=== PATIENT | female | born 1945 | race Two or more races ===

== ENCOUNTER 2022-01-12 22:44 | Emergency (ER) | payer MEDICARE, OTHER ==
[~2022-01-12] VITALS: Ht 152.4 cm; Wt 90.6 kg
[~2022-01-12 22:44] MED LIST: ATOR20TA58 PO; DEXT15DR17 OU; DIVA-51 PO; DOCU-148 PO; DONE5TAB56 PO; DORZ10DR6 OU; HYDR-2765 PO; INSU100V8 SQ; LATA2.5D2 OU; LEVO150T5 PO; POLY17PO52 PO; QUET25TA3 PO; SERT-267 PO
[2022-01-13] MEDS ORDERED: IV NORMAL SALINE 1000ML BAG 1,000 ML IV ONE
[2022-01-13 00:08] LABS: BASO % 1 % (0-3); EOS # 0.2 x10^3/uL (0.0-0.7); EOS % 2 % (0-3); HEMATOCRIT 40.3 % (36.0-47.0); LYMPH # 1.5 x10^3/uL (1.0-4.8); LYMPH % 17 % (24-48); MEAN CORPUSCULAR HEMOGLOBIN 28 pg (25-35); MEAN CORPUSCULAR HGB CONC 32 g/dL (31-37); MEAN CORPUSCULAR VOLUME 86 fL (79-100); MONO # 0.6 x10^3/uL (0.0-1.1); MONO % 7 % (0-9); NEUT # 6.5 x10^3/uL (1.8-7.7); NEUT % 74 % (31-73); PLATELET COUNT 168 x10^3/uL (140-400); RED BLOOD COUNT 4.69 x10^6/uL (3.50-5.40); RED CELL DISTRIBUTION WIDTH 15.3 % (11.5-14.5); WHITE BLOOD COUNT 8.8 x10^3/uL (4.0-11.0)
[2022-01-13 00:28] LABS: ANION GAP 6 (6-14); BLOOD UREA NITROGEN 27 mg/dL (7-20); BUN/CREATININE RATIO 19 (6-20); CALCIUM 11.3 mg/dL (8.5-10.1); CARBON DIOXIDE 26 mmol/L (21-32); CHLORIDE 104 mmol/L (98-107); CREATININE 1.4 mg/dL (0.6-1.0); GFR 36.6; GLUCOSE 245 mg/dL (70-99); POTASSIUM 5.5 mmol/L (3.5-5.1); SODIUM 136 mmol/L (136-145)
[2022-01-13 00:34] LABS: ALBUMIN 2.4 g/dL (3.4-5.0); ALBUMIN/GLOBULIN RATIO 0.6 (1.0-1.7); ALK PHOS 95 U/L (46-116); ALT (SGPT) 20 U/L (14-59); AST (SGOT) 14 U/L (15-37); TOTAL BILIRUBIN 0.2 mg/dL (0.2-1.0); TOTAL PROTEIN 6.6 g/dL (6.4-8.2)
[2022-01-13 00:36] LABS: VAL ACID 51 mcg/mL (50-100)
[2022-01-13 01:09] VITALS: BP 147/69
--- NOTE | 2022-01-13 10:33 | EKG ---
[facility] [address] [place] [address] Test Date: 2022-01-12 Test Time: 22:58:29 Pat Name: SADA RALPH Department: Room: Gender: [employer] Dis[employer]: [id number] : 1945 Requested By: JAE LE Order Number: [id number] Reading MD: Andrea Colunga Measurements Intervals [place] Rate: 90 P: 41 [place]: 230 QRS: 205 QRSD: 98 T: 5 QT: 424 QTc: 523 Interpretive Statements SINUS RHYTHM PROLONGED [place] INTERVAL LOW VOLTAGE INCOMPLETE RIGHT BUNDLE BRANCH BLOCK PROLONGED QT ABNORMAL ECG RI6.02 No previous ECG available for comparison Electronically Signed On 01-22-2022 8:58:14 CDT by Andrea Colunga
== END 2022-01-13 05:30 | disposition home or self-care (01) ==
LOC: ER 22:44
DX: R62.7 Adult failure to thrive (principal); R41.82 Altered mental status, unspecified
CPT/HCPCS: 36415; 80053; 80164; 85025; 93005; 96360; 99285; J7030

== ENCOUNTER → 2022-02-02 | Outpatient (CLI) | payer MEDICARE, OTHER ==
[2022-01-13 01:09] VITALS: BP 147/69
--- NOTE | 2022-02-02 16:19 | RAD ---
EXAM: Parathyroid scintigraphy. HISTORY: Hypercalcemia, elevated parathyroid hormone. COMPARISON: None. FINDINGS: 22 mCi Tc-99m's sestamibi was administered intravenously. Scintigraphic images of the neck and upper chest were obtained immediately and after a delay. There is a vague focus of persistent activity inferior to the lower pole of the left thyroid lobe. Th is appears to be obscured by the image with a marker at the sternal notch, suggesting the lesion is a t the sternal notch. IMPRESSION: 1. Findings suggesting a parathyroid adenoma in the region of the sternal notch on the left. CT or ul trasound could further differentiate an exophytic inferior thyroid nodule from a parathyroid adenoma if the diagnosis remains unclear. Electronically signed by: Alexandro Polanco MD (02/02/2022 4:17 PM) [id number]
== END ==
LOC: NM 09:10
PROVIDERS: ATTEND Internal Medicine
DX: E21.3 Hyperparathyroidism, unspecified (principal)
CPT/HCPCS: 78070; A9500